=== PATIENT | female | born 1980 | race Caucasian/White ===

== ENCOUNTER → 2017-03-17 08:00 | Outpatient (CLI) | payer OTHER ==
[~2017-03-17] VITALS: Ht 154.9 cm; Wt 71.2 kg
[~2017-03-17 08:00] MED LIST: SYNTHROID50 MCG; SYNTHROID50 MCG PO; ZITHROMAX TRI-500 MG PO; ZYRTEC10 MG PO
== END | disposition home or self-care (01) ==
LOC: LAB 08:00 → SURH 03-22 08:00 → EDSTATUS 03-22 08:00 → SURH 03-22 12:45
DX: C50.411 Malignant neoplasm of upper-outer quadrant of right female breast (principal); Z01.812 Encounter for preprocedural laboratory examination; Z01.818 Encounter for other preprocedural examination